=== PATIENT | male | born 1935 | race Two or more races ===

== ENCOUNTER 2022-11-08 10:33 | Inpatient (IN) | payer MEDICARE, OTHER ==
[~2022-11-08] VITALS: Ht 188 cm; Wt 58.4 kg
[2022-11-08 12:15] LABS: Basophils # (auto) 0 10 ^3/uL (0-0.2); Basophils % (auto) 0.2 % (0.0-2.0); Eosinophils # (auto) 0 10 ^3/uL (0-0.8); Eosinophils % (auto) 0.3 % (0.0-7.0); Hemoglobin 10.3 g/dL (13.5-17.5); Lymphocytes # (auto) 3.9 10 ^3/uL (0.4-5.4); Lymphocytes % (auto) 29.5 % (10.0-50.0); Mean Corpuscular Hemoglobin 30.2 pg (28.0-32.0); Mean Corpuscular Hgb Conc. 34.4 g/dL (32.0-36.0); Mean Corpuscular Volume 87.7 fL (80.0-100.0); Monocytes # (auto) 1.4 10 ^3/uL (0-1.3); Monocytes % (auto) 10.7 % (0.0-12.0); Neutrophils # (auto) 7.8 10 ^3/uL (1.6-8.6); Neutrophils % (auto) 59.3 % (37.0-80.0); Nucleated Red Blood Cells % 0.1 %; Red Blood Cells 3.42 10^6/uL (4.5-5.90); Red Cell Distribution Width 15.4 % (11.8-14.3); White Blood Cell 13.2 10^3/uL (4.4-10.8)
[2022-11-08 12:38] LABS: Albumin 3.3 g/dL (3.4-5.0); BUN/Creatinine Ratio 29.6 (10.0-20.0); Bilirubin, Total 0.3 mg/dL (0.2-1.0); Calcium 9.8 mg/dL (8.5-10.1); Potassium 4.5 mmol/L (3.5-5.1); Total Protein 7.6 g/dL (6.4-8.2)
[2022-11-08 12:42] LABS: INR 1.09 (0.9-1.15); Partial Thromboplastin Time 26.3 sec (24.6-33.4)
[2022-11-08] MEDS ORDERED: MORPHINE SULFATE INJ 2 MG/ml SYRG IV PRN ×2 (16:00)
[2022-11-08] MEDS ORDERED: NITROGLYCERIN 0.4 MG SL TAB SL PRN (16:00)
[2022-11-08] MEDS ORDERED: hydrALAZINE HCL 20 MG/ML VL IV PRN (16:00)
[2022-11-08] MEDS ORDERED: ACETAMINOPHEN 325 MG TAB PO PRN (16:00)
[2022-11-08] MEDS ORDERED: ONDANSETRON HCL 4 MG/2 ML VIAL IV PRN (16:00)
[2022-11-08] MEDS: METOPROLOL TARTRATE 25 MG TAB PO SCH (22:00)
[2022-11-09] MEDS: MORPHINE SULFATE 4 MG/ML SYR/VIAL IV PRN ×2 (00:02→07:47)
[2022-11-09] MEDS ORDERED: AMLO-489 PO (02:09)
[2022-11-09] MEDS ORDERED: HYDR-4902 PO (02:09)
[2022-11-09] MEDS ORDERED: PRAV20TA3 PO (02:09)
[2022-11-09] MEDS ORDERED: [UNRECOGNIZED DRUG - CODE] PO (02:09)
[2022-11-09] MEDS ORDERED: DOCU100T7 PO (02:09)
[2022-11-09] MEDS ORDERED: FOLI1TAB6 PO (02:09)
[2022-11-09 05:00] VITALS: BP 105/60
[2022-11-09] MEDS: METOPROLOL TARTRATE 25 MG TAB PO SCH ×3 (07:46→21:47)
[2022-11-09 08:00] VITALS: BP 115/67
[2022-11-09 09:00] VITALS: BP 115/67
[2022-11-09] MEDS: FAMOTIDINE 20 MG TAB PO SCH (09:31)
[2022-11-09] MEDS ORDERED: ceFAZolin 1GM/50ML 100 ML IV ONE (10:57)
[2022-11-09 11:23] LABS: Urine Bacteria NONE SEEN /hpf (None Seen); Urine Blood Negative /uL (Negative); Urine Specific Gravity 1.018 (1.001-1.035); Urine WBC <1 /hpf (0 - 3)
[2022-11-09] MEDS ORDERED: fentaNYL CITRATE 100 MCG/2 ML VL ONE (12:24)
[2022-11-09] MEDS ORDERED: MEPERIDINE HCL (50 MG/ML) 1 ML VIAL ONE (12:24)
[2022-11-09] MEDS ORDERED: ROCURONIUM 10MG/ML 10ML VIAL IV ONE (12:24)
[2022-11-09] MEDS ORDERED: MIDAZOLAM HCL 2MG/2ML 2ml VIAL (1mg/ml) ONE (12:25)
[2022-11-09] MEDS ORDERED: SODIUM CHLORIDE LOCK 50 ML ONE (12:25)
[2022-11-09] MEDS ORDERED: DexAMETHasone SOD PHOS 10MG/1ML VIAL INJ ONE (12:25)
[2022-11-09] MEDS ORDERED: NEOSTIGMINE 1 MG/ML INJ (10mg/10ML VIAL) ONE (12:25)
[2022-11-09] MEDS ORDERED: GLYCOPYRROLATE 0.2 MG/ML 1ML VIAL ONE (12:25)
[2022-11-09] MEDS ORDERED: TRANEXAMIC ACID 20 ML ONE (12:32)
[2022-11-09] MEDS ORDERED: BUPIVACAINE 0.25% INJ 50ML VIAL ONE (12:32)
[2022-11-09] MEDS ORDERED: MORPHINE SULF PF 5 MG/10 ML VIAL ONE (12:35)
[2022-11-09] MEDS ORDERED: VANCOMYCIN HCL 1000 MG VL ONE (12:35)
[2022-11-09] MEDS ORDERED: KETOROLAC TROMETH 30 MG/ML 1ML VIAL ONE (12:35)
[2022-11-09] MEDS ORDERED: MORPHINE SULFATE INJ 2 MG/ml SYRG IV PRN (12:45)
[2022-11-09] MEDS ORDERED: HYDROmorphone HCL 2 MG/ML VL/or syr IV PRN ×3 (12:45→16:00)
[2022-11-09] MEDS ORDERED: METOCLOPRAMIDE HCL 5MG/ml INJ 2ml VIAL IV PRN (12:45)
[2022-11-09] MEDS ORDERED: SUGAMMADEX 200mg/2ml Vial (100MG/ML) IV ONE (15:12)
[2022-11-09] MEDS ORDERED: LACTATED RINGER'S 1,000 ML IV SCH (15:45)
[2022-11-09] MEDS ORDERED: ONDANSETRON HCL 4 MG/2 ML VIAL IV PRN (16:00)
[2022-11-09] MEDS ORDERED: ePHEDrine SULFATE 50 MG/ML AMP IV PRN (16:00)
[2022-11-09] MEDS ORDERED: LABETALOL HCL 5 MG/ML 4ML SYRINGE IV PRN (16:00)
[2022-11-09] MEDS ORDERED: MORPHINE SULFATE 4 MG/ML SYR/VIAL IV PRN (16:00)
[2022-11-09] MEDS ORDERED: MIDAZOLAM HCL 2MG/2ML 2ml VIAL (1mg/ml) IV PRN (16:00)
[2022-11-09 20:00] VITALS: BP 124/66
[2022-11-09] MEDS: ceFAZolin 1GM/50ML 50 ML IV SCH (21:48)
[2022-11-09 22:00] VITALS: BP 124/66
[2022-11-10] MEDS: ceFAZolin 1GM/50ML 50 ML IV SCH (03:23)
[2022-11-10 03:55] VITALS: BP 147/74
[2022-11-10] MEDS ORDERED: ceFAZolin 1GM/50ML 50 ML IV SCH (07:15)
[2022-11-10 07:30] LABS: Basophils # (auto) 0 10 ^3/uL (0-0.2); Basophils % (auto) 0.2 % (0.0-2.0); Eosinophils # (auto) 0 10 ^3/uL (0-0.8); Hematocrit 28.1 % (41.0-53.0); Hemoglobin 9.8 g/dL (13.5-17.5); Lymphocytes # (auto) 4.4 10 ^3/uL (0.4-5.4); Lymphocytes % (auto) 32.8 % (10.0-50.0); Mean Corpuscular Hemoglobin 32.4 pg (28.0-32.0); Mean Corpuscular Volume 92.5 fL (80.0-100.0); Monocytes # (auto) 1.2 10 ^3/uL (0-1.3); Monocytes % (auto) 8.5 % (0.0-12.0); Neutrophils # (auto) 7.9 10 ^3/uL (1.6-8.6); Neutrophils % (auto) 58.5 % (37.0-80.0); Nucleated Red Blood Cells % 0.1 %; Red Blood Cells 3.04 10^6/uL (4.5-5.90); Red Cell Distribution Width 15.2 % (11.8-14.3); White Blood Cell 13.5 10^3/uL (4.4-10.8)
[2022-11-10 07:34] LABS: Calcium 9.1 mg/dL (8.5-10.1); Potassium 4.6 mmol/L (3.5-5.1)
[2022-11-10 07:36] LABS: BUN/Creatinine Ratio 30.3 (10.0-20.0)
[2022-11-10 09:00] VITALS: BP 159/66
[2022-11-10] MEDS: METOPROLOL TARTRATE 25 MG TAB PO SCH ×2 (09:02→21:38)
[2022-11-10 13:00] VITALS: BP 142/75
[2022-11-10 16:58] VITALS: BP 133/76
[2022-11-10 20:00] VITALS: BP 137/78
[2022-11-10] MEDS: CELECOXIB 100 MG CAP PO SCH (21:37)
[2022-11-10] MEDS: DOCUSATE SOD 100 MG CAP PO SCH (21:38)
[2022-11-10 22:00] VITALS: BP 137/78
[2022-11-11 05:00] VITALS: BP 112/68
[2022-11-11 08:00] VITALS: BP 120/72
[2022-11-11 09:00] VITALS: BP 120/72
[2022-11-11] MEDS ORDERED: CEL100T PO (09:29)
[2022-11-11] MEDS: CELECOXIB 100 MG CAP PO SCH (09:43)
[2022-11-11] MEDS ORDERED: ENOXAPARIN SOD 30 MG/0.3 ML SYRINGE SC SCH (10:00)
[2022-11-11] MEDS ORDERED: PRAVASTATIN SODIUM 20 MG TAB PO SCH (10:00)
[2022-11-11 13:01] VITALS: BP 114/66
[2022-11-11] MEDS: DOCUSATE SOD 100 MG CAP PO SCH (13:14)
[2022-11-11] MEDS: FAMOTIDINE 20 MG TAB PO SCH (13:15)
[2022-11-11] MEDS: METOPROLOL TARTRATE 25 MG TAB PO SCH (13:15)
[2022-11-11] MEDS ORDERED: DIGOXIN (250MCG/ML) 2 ML AMPULE IV ONE (13:15)
[2022-11-11] MEDS: MORPHINE SULFATE 4 MG/ML SYR/VIAL IV PRN (13:45)
[2022-11-11 16:57] VITALS: BP 119/74
[2022-11-11 20:00] VITALS: BP 120/72
[2022-11-12] MEDS ORDERED: METO25TA93 PO (11:06)
== END 2022-11-11 20:40 | disposition home or self-care (01) | DRG 493 ==
LOC: ER 10:33 → TELE 16:06 → TELE-WESTW 22:12
PROVIDERS: ADMIT Hospitalist; ATTEND Hospitalist
PROC: 0PSD04Z Reposition Left Humeral Head with Internal Fixation Device, Open Approach (ICD-10-PCS; principal; 2022-11-09 13:16)
DX: S42.292A Other displaced fracture of upper end of left humerus, initial encounter for closed fracture (principal); C41.9 Malignant neoplasm of bone and articular cartilage, unspecified; E44.1 Mild protein-calorie malnutrition; Z68.1 Body mass index [BMI] 19.9 or less, adult; G89.29 Other chronic pain; W18.39XA Other fall on same level, initial encounter; Z82.49 Family history of ischemic heart disease and other diseases of the circulatory system; Z20.822 Contact with and (suspected) exposure to COVID-19; Y93.89 Activity, other specified; Y92.89 Other specified places as the place of occurrence of the external cause; Y99.8 Other external cause status; I11.9 Hypertensive heart disease without heart failure
CPT/HCPCS: 36415; 71045; 73060; 73200; 76000; 80048; 80053; 81001; 85025; 85610; 85730; 86850; 86900; 86901; 87426; 93005; 93306; 97110; 97116; 97163; 97530; G0378; J0690; J1100; J1885; J2250; J3490